=== PATIENT | male | born 1985 | race Hispanic/Latino ===

== ENCOUNTER 2017-02-07 12:04 | Emergency (ER) | payer BC ==
--- NOTE | 2017-02-07 12:15 | C.PDOC ---
History Of Present Illness 32-YEAR-OLD MALE, PRESENTS TO THE EMERGENCY DEPARTMENT CO NAUSEA SINCE LAST NIGHT. NO ABD PAIN. +ETOH LAST NIGHT. PATIENT ALSO W PERSIST PAIN, DEFORM TO R HAND S/P INJURY 01/23. PT IS R HANDED. EXAM MILD DIST NONTOXIC ABD NEG EXT R HAND +LAT DEVIATION R 4 & 5 FINGERS, LOSS MCP LANDMARKS 4/5. GEN TEND DORSAL LAT HAND. SKIN INTACT NO ERYTHEMA NEURO INTACT Time Seen by Provider: 02/07/17 12:08 History Per: Patient History/Exam Limitations: no limitations Onset/Duration Of Symptoms: Days Past Medical History Reviewed: Historical Data, Nursing Documentation, Vital Signs Vital Signs: Last Vital Signs Temp 97.8 F 02/07/17 12:29 Pulse 80 02/07/17 12:29 Resp 16 02/07/17 12:29 BP 133/87 02/07/17 12:29 Pulse Ox 97 02/07/17 12:29 - Medical History PMH: Mitral Valve Prolapse - [facility] Procedures APPLICATION OF SPLINT (12/21/14) Family History: States: No Known Family Hx - Social History Hx Tobacco Use: No Hx Alcohol Use: No Hx Substance Use: No - Immunization History Hx Tetanus Toxoid Vaccination: No Hx Influenza Vaccination: No Hx Pneumococcal Vaccination: No Review Of Systems Except As Marked, All Systems Reviewed And Found Negative. Constitutional: Negative for: Fever Respiratory: Negative for: Shortness of Breath Gastrointestinal: Negative for: Vomiting Musculoskeletal: Positive for: Hand Pain Neurological: Negative for: Weakness, Numbness Physical Exam - Physical Exam Appears: Non-toxic, No Acute Distress Skin: Warm, Dry, Other (INTACT NO ERYTHEMA) Eye(s): bilateral: Normal Inspection, PERRL Nose: Normal Oral Mucosa: Moist Lips: Normal Appearing Neck: Normal ROM Gastrointestinal/Abdominal: Soft, No Tenderness Extremity: Other (R HAND +LAT DEVIATION R 4 & 5 FINGERS, LOSS MCP LANDMARKS 4/ 5. GEN TEND DORSAL LAT HAND. ) Neurological/Psych: Oriented x3, Normal Speech ED Course And Treatment - Other Rad R HAND X-Ray: Interpreted by Me (+R 5 METACARPAL FX DISPLACED; +4TH METACARPAL HEAD FX) Reevaluation Time: 13:37 Reassessment Condition: Improved (NAUSEA RESOLVED. PT ADVISED OF NEED TO SEE HAND SURGEON FOR FURTHER FOLLOW UP. ADVISED TO WEAR SPLINT, LIMITED FULL USE OF R HAND UNTIL EVALUATION BY HAND SURGERY. FAMILY AWARE.) Orthopedic Time Performed: 13:35 Time Out: Side verified, Site verified, Patient ID confirmed Procedure: Splint Type: Short Other:: ULNAR GUTTER Location: Right, Hand Consent obtained: Verbal Performed by: Attending Physician Diagnosis: Fracture, Dislocation Type: Closed, Displaced Location: Right Bone: Metacarpal, 4th, 5th Joints: MCP Joint Capillary refill: Normal Distal Sensation: Normal Distal Motor Function: Normal Capillary Refill: Normal Compartment: Normal Distal Sensation: Normal Distal Motor Function: Normal Patient tolerated procedure: Well Disposition Counseled Patient/Family Regarding: Studies Performed, Diagnosis, Need For Followup - Disposition Referrals: Madhuri Torres MD [Staff Provider] - Ina Raygoza MD [Staff Provider] - Disposition: HOME/ ROUTINE Disposition Time: 13:39 Condition: IMPROVED Additional Instructions: WEAR SPLINT CONTINUOUSLY UNTIL EVALUATION BY HAND SURGERY. TYLENOL AND/OR MOTRIN DIRECTED NEEDED FOR PAIN. Instructions: Hand Fracture (ED), Splint Care (ED) Forms: Work Excuse - Clinical Impression Clinical Impression: Nausea, Hand fracture - Scribe Statement The provider has reviewed the documentation as recorded by the Scribe (NEO RAYGOZA) All medical record entries made by the Scribe were at my direction and personally dictated by me. I have reviewed the chart and agree that the record accurately reflects my personal performance of the history, physical exam, medical decision making, and the department course for this patient. I have also personally directed, reviewed, and agree with the discharge instructions and disposition.
--- NOTE | 2017-02-07 12:33 | RAD ---
PROCEDURE: Right Hand Radiographs. HISTORY: TRAUMA COMPARISON: None available. FINDINGS: BONES: Comminuted intra-articular displaced fracture of the proximal 5th metacarpal. JOINTS: No dislocation. SOFT TISSUES: Soft tissue swelling. No evidence of radiopaque foreign body. OTHER FINDINGS: None. IMPRESSION: Comminuted intra-articular displaced fracture of the proximal 5th metacarpal and associated soft tissue swelling.
[2017-02-07] MEDS ORDERED: Aluminum Hydroxide/Magnesium Hydroxide Susp (30 mL) PO STA (13:41)
[2017-02-07] MEDS ORDERED: Aluminum Hydroxide/Magnesium Hydroxide Susp (30 mL) ONE (13:44)
[2017-02-07 14:10] VITALS: BP 130/82; PULSE 74; RESP 15; TEMP 98.2; O2SAT 98
== END 2017-02-07 14:09 | disposition home or self-care (01) ==
LOC: C.ER 12:04
DX: R11.0 Nausea (principal); S62.91XD Unspecified fracture of right hand, subsequent encounter for fracture with routine healing; X58.XXXD Exposure to other specified factors, subsequent encounter

== ENCOUNTER 2017-09-06 10:59 | Emergency (ER) | payer BC ==
--- NOTE | 2017-09-06 11:45 | C.PDOC ---
History Of Present Illness PERSIST L GROIN PAIN X 1 WEEK. WAX WANE LOCALIZED. HO PRIOR L INGUINAL SURGERY. NO FEVER, NVD. +LAST BM TODAY. ?NEW ONSET MASS IN AREA. S/P EVAL PMD, PENDING OUTPT CT BUT PAIN WORSENING. EXAM MILD DIST NONTOXIC ABD SOFT NT ND NO R/G +DEEP SUBCUT NODULE <1-2 CM, MOBILE, NONREDUCIBLE L INGUINAL AREA W LOCAL TEND. NO GROSS INGUINAL SWELL, MASS. R INGUINAL WNL. REMAINDER NEG MDM PT DOES NOT WANT PAIN MEDS @ THIS TIME. NPO, CT R/O INCARC Time Seen by Provider: 09/06/17 11:34 Chief Complaint (Nursing): Abdominal Pain History Per: Patient History/Exam Limitations: no limitations Onset/Duration Of Symptoms: Days Current Symptoms Are (Timing): Still Present Severity: Moderate Last Bowel Movement: Today Past Medical History Reviewed: Historical Data, Nursing Documentation, Vital Signs Vital Signs: Last Vital Signs Temp Pulse Resp BP Pulse Ox 99 09/06/17 12:52 - Medical History PMH: Mitral Valve Prolapse Other Surgeries: Hx of surgeries - [facility] Procedures APPLICATION OF SPLINT (12/21/14) Family History: States: No Known Family Hx - Social History Hx Tobacco Use: No Hx Alcohol Use: Yes Hx Substance Use: No - Immunization History Hx Tetanus Toxoid Vaccination: Yes Hx Influenza Vaccination: No Hx Pneumococcal Vaccination: No Review Of Systems Except As Marked, All Systems Reviewed And Found Negative. Constitutional: Negative for: Fever, Chills Gastrointestinal: Negative for: Nausea, Vomiting, Diarrhea Musculoskeletal: Positive for: Other (left groin pain) Physical Exam - Physical Exam Appears: Non-toxic, Other (mild distress) Skin: Normal Color, Warm Head: Atraumatic, Normacephalic Eye(s): bilateral: Normal Inspection Gastrointestinal/Abdominal: Normal Exam, Soft, No Tenderness, No Distention, No Guarding, No Rebound Male Genital: No Inguinal Swelling (gross inguinal swelling), Other (deep subcut nodule < 1-2 cm, mobile,nonreducible left inguinal area with local tenderness, mass. right inguinal wnl) Neurological/Psych: Oriented x3, Normal Speech, Normal Motor, Normal Sensation ED Course And Treatment - Laboratory Results Result Diagrams: 09/06/17 11:48 09/06/17 11:48 O2 Sat by Pulse Oximetry: 99 (RA) Pulse Ox Interpretation: Normal Progress - Re-Evaluation Re-evaluation Note: 09/06/17 15:47 APPEARS COMFORTABLE NAD NO S/S ACUTE ABD. CT REPORT REVIEWED. ADVISED FU PMD - Data Reviewed Data Reviewed: Lab, Diagnostic imaging, Old records Medical Decision Making Medical Decision Making: Plan: --LABS --UA --CT- Abd/Pelv. PT DOES NOT WANT PAIN MEDS @ THIS TIME. NPO, CT R/O INCARC Disposition Counseled Patient/Family Regarding: Studies Performed, Diagnosis, Need For Followup - Disposition Referrals: YOUR,PMD [Other] Disposition: HOME/ ROUTINE Disposition Time: 15:47 Condition: IMPROVED Instructions: Groin Strain (DC) Forms: [facility] (Setswana), Work Excuse - Clinical Impression Clinical Impression: Groin pain - Scribe Statement The provider has reviewed the documentation as recorded by the Giancarloibe Spike Carreno Provider Attestation: All medical record entries made by the Scribe were at my direction and personally dictated by me. I have reviewed the chart and agree that the record accurately reflects my personal performance of the history, physical exam, medical decision making, and the department course for this patient. I have also personally directed, reviewed, and agree with the discharge instructions and disposition.
[2017-09-06] MEDS ORDERED: Iohexol 240 (50 ml) PO ONE (11:50)
[2017-09-06 11:56] LABS: BASO % 0.5 % (0.0-2.0); EOS # 0.1 K/uL (0.0-0.7); HEMOGLOBIN 14.4 g/dL (12.0-18.0); LYMPH # 3.1 K/uL (1.0-4.3); LYMPH % 33.7 % (20.0-40.0); MEAN CELL VOLUME 83.8 fL (80.0-94.0); MEAN CORPUSCULAR HGB CONC 34.7 g/dL (33.0-37.0); MEAN PLATELET VOLUME 8.7 fL (7.2-11.7); MONO # 0.5 K/uL (0.0-0.8); MONO % 5.8 % (0.0-10.0); NEUT # 5.4 K/uL (1.8-7.0); RBC 4.96 Mil/uL (4.40-5.90); RED CELL DISTRIBUTION WIDTH 12.5 % (11.5-14.5); WHITE BLOOD COUNT 9.2 K/uL (4.8-10.8)
[2017-09-06] MEDS ORDERED: Iohexol 240 (50 ml) ONE (11:59)
[2017-09-06 12:09] LABS: ALB/GLOB RATIO 1.4 (1.0-2.1); ALBUMIN 4.2 g/dL (3.5-5.0); ALT/SGPT 25 U/L (21-72); AMYLASE 64 U/L (30-110); AST/SGOT 27 U/L (17-59); BLOOD UREA NITROGEN 10 mg/dL (9-20); CALCIUM 9.3 mg/dl (8.6-10.4); GFR AFRICAN-AMERICAN > 60; GFR NON-AFRICAN AMERICAN > 60; LIPASE 55 U/L (23-300)
[2017-09-06 12:19] LABS: VENOUS BLOOD GAS BASE EXCESS 0.3 mmol/L (0.0-2.0); VENOUS BLOOD GAS PCO2 48 mmHg (40-60); VENOUS BLOOD GAS PO2 26 mm/Hg (30-55); VENOUS BLOOD PH 7.35 (7.32-7.43)
[2017-09-06 12:29] LABS: SQUAMOUS EPITHIAL < 1 /hpf (0-5); URINE BILIRUBIN NEGATIVE (NEGATIVE); URINE BLOOD NEGATIVE (NEGATIVE); URINE CLARITY Clear (Clear); URINE COLOR Yellow (YELLOW); URINE GLUCOSE (UA) NORMAL (Normal); URINE LEUKOCYTE ESTERASE NEG Leu/uL (Negative); URINE NITRATE NEGATIVE (NEGATIVE); URINE PROTEIN NEGATIVE (NEGATIVE); URINE UROBILINOGEN NORMAL mg/dL (0.2-1.0)
[2017-09-06] MEDS ORDERED: Iodixanol 320 MG/ML 100 ML BOTTLE IV ONE (14:40)
--- NOTE | 2017-09-06 15:45 | CT ---
PROCEDURE: CT Abdomen and Pelvis with contrast HISTORY: L INGUINAL PAIN HO PRIOR HERNIA REPAIR RO incarcerated hernia COMPARISON: 08/08/2016 TECHNIQUE: Contrast dose: 100 cc Visipaque 320 Radiation dose: Total exam DLP = 820.15 mGy-cm. This CT exam was performed using one or more of the following dose reduction techniques: Automated exposure control, adjustment of the mA and/or kV according to patient size, and/or use of iterative reconstruction technique. FINDINGS: LOWER THORAX: Unremarkable. LIVER: Unremarkable. No gross lesion or ductal dilatation. GALLBLADDER AND BILE DUCTS: Unremarkable. PANCREAS: Unremarkable. No gross lesion or ductal dilatation. SPLEEN: Unremarkable. ADRENALS: Unremarkable. No mass. KIDNEYS AND URETERS: Unremarkable. No hydronephrosis. No solid mass. Incidental finding(s): Midpole left renal cyst 4.4 cm. VASCULATURE: Unremarkable. No aortic aneurysm. BOWEL: No evidence of mechanical obstruction. No evidence of inguinal hernia or ventral hernia containing small bowel. Mild thickening of the wall of the descending colon likely underfilling without an adjacent inflammatory component. APPENDIX: Normal appendix. PERITONEUM: Unremarkable. No free fluid. No free air. LYMPH NODES: Unremarkable. No enlarged lymph nodes. BLADDER: Unremarkable. REPRODUCTIVE: The seminal vesicles are mildly enlarged, nonspecific finding can be seen with infectious/inflammatory etiologies. The adjacent prostate is unremarkable. BONES: No acute fracture. OTHER FINDINGS: None. IMPRESSION: No evidence of bowel incarceration or obstruction. Prominent seminal vesicles bilaterally suggestive but not diagnostic of infectious/inflammatory process ease. Additional benign and/or incidental findings described above.
[2017-09-06 16:05] VITALS: BP 125/97; PULSE 77; RESP 20; TEMP 98.4; O2SAT 97
== END 2017-09-06 16:23 | disposition home or self-care (01) ==
LOC: C.ER 10:59
DX: R10.30 Lower abdominal pain, unspecified (principal)
CPT/HCPCS: 74177; 80053; 81001; 82150; 82803; 83690; 85025; 87086; 99284; Q9966; Q9967